=== PATIENT | female | born 1990 | race Two or more races ===

== ENCOUNTER 2019-06-03 10:13 | Emergency (ER) | payer OTHER ==
[~2019-06-03] VITALS: Ht 149.9 cm; Wt 61.2 kg
[2019-06-03] MEDS ORDERED: SPIRIVA RESPIMAT4 G1 IH (10:26)
[2019-06-03] MEDS ORDERED: AMOX1TAB5 PO (12:57)
[2019-06-03] MEDS ORDERED: NAPROXEN500 MG PO (12:57)
[2019-06-03] MEDS ORDERED: MUCINEX1200 MG PO (14:12)
== END 2019-06-03 14:18 | disposition home or self-care (01) ==
LOC: ER 10:13 → EDBD 10:50 → ER 14:18
DX: J06.9 Acute upper respiratory infection, unspecified (principal)

== ENCOUNTER 2019-07-09 11:15 | Emergency (ER) | payer OTHER ==
[~2019-07-09] VITALS: Ht 152.4 cm; Wt 59.0 kg
[~2019-07-09 11:15] MED LIST: AMOX1TAB5 PO; MUCINEX1200 MG PO; NAPROXEN500 MG PO; SPIRIVA RESPIMAT4 G1 IH
== END 2019-07-09 15:00 | disposition home or self-care (01) ==
LOC: ER 11:15
DX: J11.1 Influenza due to unidentified influenza virus with other respiratory manifestations (principal); B96.0 Mycoplasma pneumoniae [M. pneumoniae] as the cause of diseases classified elsewhere

== ENCOUNTER 2019-11-28 07:17 | Emergency (ER) | payer OTHER | END 2019-11-28 08:40 | disposition home or self-care (01) | LOC: ER 07:17 | DX: H60.8X2 Other otitis externa, left ear (principal) ==

== ENCOUNTER 2020-07-12 15:25 | Emergency (ER) | payer OTHER ==
[~2020-07-12] VITALS: Ht 152.4 cm; Wt 63.5 kg
[~2020-07-12 15:25] MED LIST changes: +PULMICORT FLEX90 MCG
== END 2020-07-12 21:18 | disposition home or self-care (01) ==
LOC: ER 15:25
DX: K52.89 Other specified noninfective gastroenteritis and colitis (principal)

== ENCOUNTER 2020-10-02 11:40 | Emergency (ER) | payer OTHER ==
[~2020-10-02] VITALS: Ht 152.4 cm; Wt 61.2 kg
[2020-10-02] MEDS ORDERED: DICLOFENAC POTA50 MG PO (14:22)
[2020-10-02] MEDS ORDERED: ZITHROMAX TRI-500 MG PO (14:22)
== END 2020-10-02 14:34 | disposition home or self-care (01) ==
LOC: ER 11:40
DX: J31.2 Chronic pharyngitis (principal); J06.9 Acute upper respiratory infection, unspecified; Z11.52 Encounter for screening for COVID-19

== ENCOUNTER 2021-01-30 17:05 | Emergency (ER) | payer OTHER ==
[~2021-01-30] VITALS: Ht 152.4 cm; Wt 63.5 kg
[~2021-01-30 17:05] MED LIST changes: +DICLOFENAC POTA50 MG PO; +ZITHROMAX TRI-500 MG PO
[2021-01-30] MEDS ORDERED: KETO10TA2 PO (20:09)
== END 2021-01-30 20:37 | disposition home or self-care (01) ==
LOC: ER 17:05
DX: R10.2 Pelvic and perineal pain (principal); Z97.5 Presence of (intrauterine) contraceptive device; D26.9 Other benign neoplasm of uterus, unspecified

== ENCOUNTER 2021-06-01 07:56 | Emergency (ER) | payer OTHER ==
[~2021-06-01] VITALS: Ht 152.4 cm; Wt 67.6 kg
[~2021-06-01 07:56] MED LIST changes: +KETO10TA2 PO
== END 2021-06-01 10:50 | disposition home or self-care (01) ==
LOC: ER 07:56
DX: U07.1 COVID-19 (principal)

== ENCOUNTER 2022-10-16 10:36 | Emergency (ER) | payer OTHER ==
[~2022-10-16] VITALS: Ht 152.4 cm; Wt 70.3 kg
[2022-10-16] MEDS ORDERED: ZITHROMAX500 MG PO (11:22)
[2022-10-16] MEDS ORDERED: FLONASE ALLERG9.9 ML NASAL (11:33)
== END 2022-10-16 12:40 | disposition home or self-care (01) ==
LOC: ER 10:36
DX: J34.89 Other specified disorders of nose and nasal sinuses (principal); Z88.8 Allergy status to other drugs, medicaments and biological substances; Z91.018 Allergy to other foods; Z87.898 Personal history of other specified conditions